=== PATIENT | female | born 1990 | race Caucasian/White ===

== ENCOUNTER 2016-03-29 17:51 | Outpatient (CLI) | payer OTHER ==
[~2016-03-29] VITALS: Ht 175.3 cm; Wt 61.9 kg
[~2016-03-29 17:51] MED LIST: BACTRIM DS 8001 TAB PO; BENTYL10 MG PO; CIPRO 500MG TA500 MG PO; COLACE GENERIC100 MG PO; FERGON240 MG PO; HYDROCODONE-APA1 TA1 PO; MOTRIN 600MG.600 MG PO; NOMEDS *; NOMEDS XX; PERCOCET 325 MG1 TA4 PO; PRENATAL PLUS1 TA1 PO; PRENATAL1 TA1 PO; PROMETRIUM200 MG PO; PYRIDIUM 200MG200 MG PO; PYRIDIUM200 M1 PO; TRAMADOL 50MG T50 MG PO; TYLENOL ES500 M1 PO; VOLTAREN75 MG PO
[2016-03-29 18:10] VITALS: BP 107/62
[2016-03-29] MEDS ORDERED: PRENATAL PLUS1 TA1 PO (18:12)
[2016-03-29] MEDS ORDERED: IRON TABLETS325 MG PO (18:13)
[2016-03-29 18:17] LABS: URINE BILIRUBIN - DIPSTICK NEGATIVE (NEG); URINE BLOOD NEGATIVE (NEG)
[2016-03-29 18:28] LABS: URINE SQUAMOUS CELLS 20-50 #/hpf (0-5)
[2016-05-24] MEDS ORDERED: TAMIFLU 75MG CA75 MG PO (12:27)
== END 2016-03-29 20:50 | disposition home or self-care (01) ==
LOC: OBOUT 17:51 → OB 17:52 → OBOUT 20:50
PROVIDERS: Nurse Practitioner Obstetrics & Gynecology
DX: O26.92 Pregnancy related conditions, unspecified, second trimester (principal); Z3A.21 21 weeks gestation of pregnancy; M54.5 Low back pain

== ENCOUNTER 2016-04-18 15:18 | Outpatient (CLI) | payer OTHER ==
[~2016-04-18] VITALS: Ht 175.3 cm; Wt 63.5 kg
[~2016-04-18 15:18] MED LIST changes: +IRON TABLETS325 MG PO
[2016-04-18 16:15] LABS: URINE BILIRUBIN - DIPSTICK NEGATIVE (NEG); URINE BLOOD NEGATIVE (NEG)
[2016-04-18 16:24] VITALS: BP 104/60
[2016-05-24] MEDS ORDERED: TAMIFLU 75MG CA75 MG PO (12:27)
== END 2016-04-18 17:30 | disposition home or self-care (01) ==
LOC: OBOUT 15:18 → OB 15:19 → OBOUT 17:30
PROVIDERS: Nurse Practitioner Obstetrics & Gynecology
DX: O26.92 Pregnancy related conditions, unspecified, second trimester (principal); Z3A.24 24 weeks gestation of pregnancy; M54.5 Low back pain; R10.84 Generalized abdominal pain

== ENCOUNTER 2016-06-14 19:45 | Outpatient (CLI) | payer OTHER ==
[~2016-06-14] VITALS: Ht 165.1 cm; Wt 67.6 kg
[~2016-06-14 19:45] MED LIST changes: +TAMIFLU 75MG CA75 MG PO
[2016-06-14 19:55] VITALS: BP 105/62
[2016-06-14 20:07] LABS: URINE BILIRUBIN - DIPSTICK NEGATIVE (NEG); URINE BLOOD NEGATIVE (NEG)
[2016-06-14 20:22] LABS: URINE SQUAMOUS CELLS 20-50 #/hpf (0-5)
== END 2016-06-14 23:15 | disposition home or self-care (01) ==
LOC: OB 19:45 → OBOUT 19:45 → OB 19:46 → OBOUT 23:15
PROVIDERS: Nurse Practitioner Obstetrics & Gynecology
DX: O26.93 Pregnancy related conditions, unspecified, third trimester (principal); Z3A.32 32 weeks gestation of pregnancy; O62.0 Primary inadequate contractions
CPT/HCPCS: J0595

== ENCOUNTER 2016-06-15 16:08 | Observation (INO) | payer OTHER ==
[~2016-06-15] VITALS: Ht 165.1 cm; Wt 67.6 kg
[2016-06-15 16:15] VITALS: BP 100/56
--- NOTE | 2016-06-15 16:37 | ACUTE CARE PROGRESS NOTE (QUA) ---
Progress Notes Subjective Date 06/15/16 Time 1634 Note She is 32 weeks and 4 days and has been having regular contractions. She was seen last night with contractions and received Brethine and fluids. She continues to have contractions today. Her nonstress test is reactive but she does have contractions. Her cervix remains closed on the inside but open on the outside of her cervix. The cervix is soft, 50 percent and station -2. Patient/family reports: feeling worse, pain Objective Findings Last VS-Temp: B/P: Pulse: Resp: SaO2: Last weight lbs: oz: Kg: Method:Digital Scales Exam General appearance: normal appearance, alert, awake, no acute distress Reviewed: vital signs, lab results Assessment/Plan Problem List 1. Abdominal pain 2. Threatened premature labor affecting , less than 37 weeks in second trimester, antepartum Patient condition Stable Plan: continue current care This inpt stay is expected to cross 2 MNs from start of care No Comments: We will plan to admit her overnight. We will start IV antibiotics as well as fluid bolus. We will give her Brethine. We will consider magnesium sulfate if her contractions do not settle. at [id number]
[2016-06-15 17:11] LABS: LYMPH # 2.7 K/mm3 (0.7-4.5); LYMPH % 23.6 % (10-50.0)
[2016-06-15 17:22] LABS: HEMOGLOBIN 10.7 g/dL (12.2-16.2)
[2016-06-16 07:30] VITALS: BP 110/60; BP 94/54
--- NOTE | 2016-06-16 08:05 | ACUTE CARE PROGRESS NOTE (QUA) ---
Progress Notes Subjective Date 06/16/16 Time 0802 Note She is doing much better this morning. She is eating and drinking and ambulating. She has had no further episodes of contractions. She has been taking IV antibiotics. She has not required any tocolytics. Patient/family reports: feeling better, no complaints Objective Findings Last VS-Temp:98.4 B/P:100/56 Pulse:90 Resp:18 SaO2: Last weight lbs:149 oz:0 K.[id number] Method:Stated Laboratory Tests 06/15/16 1620: Sodium 136, Potassium 4.3, Chloride 105, Carbon Dioxide 24, BUN 6 L, Creatinine 0.4 L, Estimated Creat Clear 227 H, Estimated GFR (MDRD) 193, Glucose 95, Calcium 9.0, WBC 11.6 H, RBC 3.19 L, Hgb 10.7 L, Hct 30.3 L, MCV 94.9, RDW 12.2, Plt Count 509 H, MPV 5.8 L, Gran % 69.2, Gran # 8.0 H, Lymphocytes % 23.6, Monocytes % 6.2, Eosinophils % 0.8, Basophils % 0.2, Lymphocytes # 2.7, Monocytes # 0.7, Eosinophils # 0.1, Basophils # 0.0, PUBS MCHC 35.6 H, MCH 33.8 H Exam General appearance: normal appearance, alert, awake, no acute distress Reviewed: vital signs, lab results Assessment/Plan Problem List 1. Abdominal pain 2. Threatened premature labor affecting , less than 37 weeks in second trimester, antepartum Patient condition Improving, Stable Plan: continue current care, initiate discharge plan This inpt stay is expected to cross 2 MNs from start of care No Comments: She is doing very well and we'll plan to send her home today. She has has had no further episodes of contractions. She will follow up with me in approximately 5 days time. at 0804
--- NOTE | 2016-06-16 08:07 | Discharge Summary ---
Discharge Summary Admission date: 06/15/16 Discharge date: 06/16/16 Discharge diagnoses: labor Clinical note: She is a 26-year-old 3 para 1 aborta 1 who is 32 and 4 weeks gestational age. She was seen in my office and was having contractions and as result that we elected to admit her. She's had previous episodes of contractions and received a course of steroids a couple of weeks ago. Course in hospital: She was started on IV antibiotics as well as IV fluids. She received 1 dose of Brethine. Her contractions subsequently settled. She's had no further episodes of contractions overnight. She is eating and drinking and ambulating. Plans for ongoing care: She is discharged home to follow-up with me in approximately 5 days time. Discharge medications She'll continue with her vitamins and iron. DC/follow-up instructions She'll continue on bedrest and avoid sexual intercourse. Condition at discharge Stable and improved at 0807
== END 2016-06-16 10:00 | disposition home or self-care (01) ==
LOC: OBOUT 16:08 → OB 16:09 → OBOUT 17:02 → OB 17:02
PROVIDERS: Nurse Practitioner Obstetrics & Gynecology
DX: O60.03 Preterm labor without delivery, third trimester (principal); Z3A.32 32 weeks gestation of pregnancy
CPT/HCPCS: G0378; J0595

== ENCOUNTER 2016-07-02 10:34 | Outpatient (CLI) | payer OTHER ==
[~2016-07-02] VITALS: Ht 165.1 cm; Wt 70.8 kg
[2016-07-02 10:49] LABS: URINE BILIRUBIN - DIPSTICK NEGATIVE (NEG); URINE BLOOD NEGATIVE (NEG)
[2016-07-02 10:52] VITALS: BP 130/74
== END 2016-07-02 13:44 | disposition home or self-care (01) ==
LOC: OBOUT 10:34 → OB 10:34 → OBOUT 13:44
PROVIDERS: Nurse Practitioner Obstetrics & Gynecology
DX: O62.9 Abnormality of forces of labor, unspecified (principal); Z3A.35 35 weeks gestation of pregnancy